=== PATIENT | female | born 2000 | race Caucasian/White ===

== ENCOUNTER 2024-10-13 13:23 | Emergency (ER) | payer OTHER ==
[~2024-10-13] VITALS: Ht 170.2 cm; Wt 56.0 kg
[2024-10-13] MEDS ORDERED: traMADol HCL 50 MG/TAB PO ONE (14:55)
[2024-10-13 15:15] LABS: EOS% 1.2 % (0-8); HEMATOCRIT 39.2 % (37.0-47.0); HEMOGLOBIN 12.6 g/dl (12.0-16.0); IMMATURE GRANULOCYTES 0.1 % (0.0-5.0); LYMPH% 26.9 % (15-41); MEAN CELL VOLUME 91.8 fL CALC (80.0-100.0); MEAN CORPUSCULAR HGB 29.5 pG CALC (26.0-32.0); MEAN CORPUSCULAR HGB CONC 32.1 g/dL CAL (32.0-36.0); MONO% 9.9 % (2-13); NEUT# 5.48 thou/uL (2.00-7.15); NEUT% 60.9 % (42-76); RED BLOOD COUNT 4.27 mill/uL (4.20-5.60); RED CELL DISTRI WIDTH 13.7 % (11.5-15.5)
[2024-10-13 15:25] LABS: ALBUMIN 4.3 g/dL (3.2-5.0); ALKALINE PHOSPHATASE 48 u/l (38-126); ANION GAP 14 (6-22 (CALC)); BILIRUBIN, TOTAL 0.5 mg/dL (0.02-1.3); BUN 7 mg/dL (7-17); BUN/CREATININE RATIO 10 (12-20 (CALC)); CARBON DIOXIDE 25 mmol/l (22-30); CHLORIDE 106 mmol/l (95-108); CREATININE 0.7 mg/dL (0.5-1.0); ESTIMATED GFR 125 ML/MIN (>=90 (CALC)); LIPASE 118 u/l (23-300); POTASSIUM 3.9 mmol/l (3.5-5.1); SGOT/AST 24 u/l (14-36); SODIUM 141 mmol/l (137-146); TOTAL PROTEIN 7.5 g/dL (6.3-8.2)
[2024-10-13] MEDS ORDERED: TRAMADOL HYDROC50 M1 PO (16:27)
[2024-10-13 16:51] VITALS: BP 100/62
== END 2024-10-13 16:52 | disposition home or self-care (01) | DRG 90 ==
LOC: ED 13:23
PROVIDERS: Family Medicine
DX: S06.0X0A Concussion without loss of consciousness, initial encounter (principal); M54.6 Pain in thoracic spine; M54.2 Cervicalgia; V49.50XA Passenger injured in collision with unspecified motor vehicles in traffic accident, initial encounter